=== PATIENT | female | born 1975 | race Caucasian/White ===

== ENCOUNTER 2020-05-25 07:55 | Outpatient (CLI) | payer OTHER ==
[~2020-05-25 07:55] MED LIST: HYDR-3240 PO; IBUP-1222 PO; PNV1TAB.5 PO
== END 2020-05-25 23:59 | disposition home or self-care (01) ==
LOC: CFH 07:55
PROVIDERS: ATTEND Obstetrics & Gynecology
DX: Z12.31 Encounter for screening mammogram for malignant neoplasm of breast (principal)
CPT/HCPCS: 77063; 77067